=== PATIENT | female | born 1970 | race Asian ===

== ENCOUNTER 2022-10-10 08:12 | Outpatient (CLI) | payer BC ==
[2022-10-10 08:52] LABS: *BILIRUBIN,URIN NEGATIVE (NEGATIVE); *CLARITY,URINE CLEAR (CLEAR); *COLOR,URINE YELLOW (YELLOW); *KETONES,URINE NEGATIVE (NEGATIVE); *UROBILINOGEN,URINE 0.2 E.U./dl (NORMAL); LEUKOCYTE ESTERASE ,URINE NEGATIVE (NEGATIVE); NITRITE, URINE NEGATIVE (NEGATIVE); UGLUCOSE NEGATIVE (NEGATIVE)
[2022-10-10 08:52] LABS: HEMATOCRIT 40.4 % (31.2-41.9); MEAN CORPUSCULAR HEMOGLOBIN 30.4 uug (24.7-32.8); MEAN CORPUSCULAR VOLUME 92.1 fL (75.5-95.3); PLATELET COUNT (AUTO) 216 K/uL (179-408)
[2022-10-10 09:00] LABS: *BLOOD, URINE TRACE (NEGATIVE)
[2022-10-10 09:56] LABS: RBC,URINE 0-3 /HPF (0-3); WBC,URINE 0-3 /HPF (0-3)
[2022-10-10 09:57] LABS: BACTERIA,URINE MODERATE /HPF (NONE SEEN); CALCIUM CARBONATE CRYSTALS,UR NONE SEEN /HPF (NONE SEEN); CALCIUM OXALATE CRYSTALS,UR NONE SEEN /HPF (NONE SEEN); CALCIUM PHOSPHATE CRYSTALS,UR NONE SEEN /HPF (NONE SEEN); COARSE GRANULAR CASTS,URINE NONE SEEN /LPF; CYSTINE CRYSTALS,URINE NONE SEEN /HPF (NONE SEEN); FATTY CASTS,URINE NONE SEEN /LPF (NONE SEEN); MUCUS,URINE FEW /LPF (0-FEW); RED BLOOD CELL CASTS,URINE NONE SEEN /LPF (NONE SEEN); SPERM,URINE NONE SEEN /HPF (NONE SEEN); SQUAMOUS EPITHELIAL CELL,UR MODERATE /HPF (NONE SEEN); TRICHOMONAS,URINE NONE SEEN /HPF (NONE SEEN); TRIPLE PHOSPHATE CRYSTAL,UR NONE SEEN /HPF (NONE SEEN); TYROSINE CRYSTAL,URINE NONE SEEN /HPF (NONE SEEN); URIC ACID CRYSTALS,URINE NONE SEEN /HPF (NONE SEEN); URINE AMORPHOUS PHOSPHATES NONE SEEN /HPF; URINE AMORPHOUS URATE NONE SEEN /HPF; WAXY CASTS,URINE NONE SEEN /LPF (NONE SEEN); YEAST,URINE NONE SEEN /HPF (NONE SEEN)
[2022-10-10 10:04] LABS: BILIRUBIN,TOTAL 0.5 mg/dL (0.2-1.0); CREATININE 0.8 mg/dL (0.6-1.3)
[2022-10-12 19:11] LABS: *OCCULT BLOOD STOOL NEGATIVE (NEGATIVE)
[2022-10-13 12:38] LABS: *OCCULT BLOOD STOOL NEGATIVE (NEGATIVE)
== END 2022-10-10 23:59 | disposition home or self-care (01) ==
LOC: LAB 08:12
PROVIDERS: ATTEND Physician Assistant Medical
DX: R31.9 Hematuria, unspecified (principal)
CPT/HCPCS: 36415; 84480; 84550; 85025

== ENCOUNTER 2022-10-12 18:00 | Outpatient (CLI) | payer BC | END 2022-10-12 23:59 | disposition home or self-care (01) | LOC: LAB 18:00 | PROVIDERS: ATTEND Physician Assistant Medical | DX: Z12.11 Encounter for screening for malignant neoplasm of colon (principal) ==

== ENCOUNTER 2022-10-13 11:00 | Outpatient (CLI) | payer BC | END 2022-10-13 23:59 | disposition home or self-care (01) | LOC: LAB 11:00 | PROVIDERS: ATTEND Physician Assistant Medical | DX: Z75.3 Unavailability and inaccessibility of health-care facilities (principal) ==

== ENCOUNTER 2022-10-15 07:48 | Outpatient (CLI) | payer BC | END 2022-10-15 23:59 | disposition home or self-care (01) | LOC: LAB 07:48 | PROVIDERS: ATTEND Psychiatry & Neurology Psychiatry | DX: Z75.3 Unavailability and inaccessibility of health-care facilities (principal) ==

== ENCOUNTER 2023-01-08 07:15 | Emergency (ER) | payer BC, OTHER ==
[~2023-01-08] VITALS: Ht 149.9 cm; Wt 68.0 kg
[2023-01-08 07:21] VITALS: O2SAT 99
[2023-01-08] MEDS ORDERED: IBUPROFEN 800 MG TABLET ONE (07:39)
[2023-01-08] MEDS ORDERED: IBUPROFEN 800 MG TABLET PO ONE (07:45)
[2023-01-08] MEDS ORDERED: IBUP-1957 PO (08:38)
== END 2023-01-08 09:06 | disposition home or self-care (01) ==
LOC: ER 07:15
DX: S16.1XXA Strain of muscle, fascia and tendon at neck level, initial encounter (principal); S29.012A Strain of muscle and tendon of back wall of thorax, initial encounter; R07.89 Other chest pain; Z79.1 Long term (current) use of non-steroidal anti-inflammatories (NSAID); V43.62XA Car passenger injured in collision with other type car in traffic accident, initial encounter; Y93.89 Activity, other specified; Y92.410 Unspecified street and highway as the place of occurrence of the external cause; Y99.8 Other external cause status
CPT/HCPCS: 71046; 72125; A4663

== ENCOUNTER 2023-07-22 13:08 | Emergency (ER) | payer BC, OTHER ==
[~2023-07-22] VITALS: Ht 149.9 cm; Wt 66.2 kg
[~2023-07-22 13:08] MED LIST: IBUP-1957 PO
[2023-07-22 13:18] VITALS: O2SAT 97
[2023-07-22] MEDS ORDERED: MUPI22OI2 TP (14:02)
== END 2023-07-22 14:14 | disposition home or self-care (01) ==
LOC: ER 13:08
DX: L30.9 Dermatitis, unspecified (principal); Z79.899 Other long term (current) drug therapy
CPT/HCPCS: A4606; A4663

== ENCOUNTER 2023-12-26 10:56 | Emergency (ER) | payer BC, OTHER ==
[~2023-12-26] VITALS: Ht 149.9 cm; Wt 67.1 kg
[~2023-12-26 10:56] MED LIST changes: +MUPI22OI2 TP
[2023-12-26 11:26] LABS: *BILIRUBIN,URIN NEGATIVE (NEGATIVE); *BLOOD, URINE NEGATIVE (NEGATIVE); *CLARITY,URINE CLEAR (CLEAR); *COLOR,URINE YELLOW (YELLOW); *KETONES,URINE NEGATIVE (NEGATIVE); *PROTEIN,URINE NEGATIVE (NEGATIVE); *UROBILINOGEN,URINE 0.2 E.U./dl (NORMAL); LEUKOCYTE ESTERASE ,URINE NEGATIVE (NEGATIVE); NITRITE, URINE NEGATIVE (NEGATIVE); PH,URINE 6.5 (5.0-8.0); UGLUCOSE TRACE (NEGATIVE)
[2023-12-26 11:38] LABS: BACTERIA,URINE MODERATE /HPF (NONE SEEN); RBC,URINE NONE SEEN /HPF (0-3); SQUAMOUS EPITHELIAL CELL,UR MODERATE /HPF (NONE SEEN); WBC,URINE 0-3 /HPF (0-3)
[2023-12-26 12:00] VITALS: BP 150/89; TEMP 98; O2SAT 98
== END 2023-12-26 12:01 | disposition home or self-care (01) ==
LOC: ER 10:57
DX: M54.50 Low back pain, unspecified (principal); Z79.1 Long term (current) use of non-steroidal anti-inflammatories (NSAID)
CPT/HCPCS: A4606; A4663

== ENCOUNTER 2025-05-03 08:06 | Emergency (ER) | payer BC, OTHER ==
[~2025-05-03] VITALS: Ht 149.9 cm; Wt 67.1 kg
[2025-05-03] MEDS ORDERED: LISI10TA29 PO (08:16)
[2025-05-03] MEDS ORDERED: HYDR12.55 PO (08:16)
[2025-05-03 08:34] LABS: PLATELET COUNT (AUTO) 194 K/uL (179-408); RED BLOOD CELL COUNT(AUTO) 5.05 MIL/uL (3.63-4.92); RED CELL DISTRIBUTION WIDTH 13.7 % (12.3-17.7); WHITE BLOOD COUNT (AUTO) 6.3 K/uL (3.8-11.8)
[2025-05-03 08:36] LABS: *URINE HCG, QUAL NEGATIVE (NEGATIVE)
[2025-05-03 08:38] LABS: *BILIRUBIN,URIN NEGATIVE (NEGATIVE); *CLARITY,URINE CLEAR (CLEAR); *COLOR,URINE YELLOW (YELLOW); *KETONES,URINE NEGATIVE (NEGATIVE); *PROTEIN,URINE NEGATIVE (NEGATIVE); *UROBILINOGEN,URINE 0.2 E.U./dl (NORMAL); LEUKOCYTE ESTERASE ,URINE NEGATIVE (NEGATIVE); NITRITE, URINE NEGATIVE (NEGATIVE); UGLUCOSE NEGATIVE (NEGATIVE)
[2025-05-03 08:39] LABS: *BLOOD, URINE TRACE (NEGATIVE)
[2025-05-03 08:42] LABS: CREATININE 0.6 mg/dL (0.6-1.3); SODIUM SERUM 140 mmol/L (136-145); UREA NITROGEN, BLOOD 15 mg/dL (7-18)
[2025-05-03 09:23] VITALS: BP 138/89
[2025-05-03 10:23] VITALS: BP 138/89; TEMP 98.1; O2SAT 100
== END 2025-05-03 10:24 | disposition home or self-care (01) ==
LOC: ER 08:06
DX: R42 Dizziness and giddiness (principal); R55 Syncope and collapse; I11.9 Hypertensive heart disease without heart failure; Z79.899 Other long term (current) drug therapy
CPT/HCPCS: 36415; 71045; 83735; 84100; 84443; 84484; 84703; 85025; A4606; A4663